=== PATIENT | female | born 1990 | race Caucasian/White ===

== ENCOUNTER 2018-02-10 15:12 | Emergency (ER) | payer OTHER ==
[~2018-02-10] VITALS: Ht 170.2 cm; Wt 60.3 kg
[2018-02-10 15:15] VITALS: BP 117/72
[2018-02-10 16:21] VITALS: BP 121/78
== END 2018-02-10 16:22 | disposition home or self-care (01) ==
LOC: MED 15:12
DX: N39.0 Urinary tract infection, site not specified (principal)
CPT/HCPCS: 36415; 81002; 81025; 84703; 99283

== ENCOUNTER 2018-09-01 13:45 | Emergency (ER) | payer OTHER ==
[~2018-09-01] VITALS: Ht 170.2 cm; Wt 61.9 kg
[2018-09-01 14:25] VITALS: BP 113/71
[2018-09-01 16:15] VITALS: BP 113/71
== END 2018-09-01 16:15 | disposition home or self-care (01) ==
LOC: MED 13:45
DX: N39.0 Urinary tract infection, site not specified (principal)
CPT/HCPCS: 81002; 81025; 99283

== ENCOUNTER 2020-08-20 13:10 | Emergency (ER) | payer OTHER ==
[~2020-08-20] VITALS: Ht 170.2 cm; Wt 58.1 kg
[2020-08-20 13:45] VITALS: BP 121/68
--- NOTE | 2020-08-20 14:16 | NUR ---
30 Y/O FEMALE COMES FROM HOME PRESENTS TO ED C/O SORE THROAT FOR 9 DAYS. PT WAS SEEN AT [facility] AND DISCHARGED WITH ERYTHROMYCIN. PT STATES SHE DID NOT TAKE THE ABX DUE TO SHE IS APPROX 5 WKS , +2 EDEMA TO LEFT-SIDE OF THROAT,+1 EDEMA TO THE RIGHT-SIDE OF THROAT, BILATERAL ERYTHEMA. NO EXUDATE NOTED. DENIES FEVER, COUGH, SOB, BODY ACHES, N/V/D, OR SICK CONTACTS. PMH: DENIES RX: DENIES NKDA
[2020-08-20] MEDS ORDERED: ACETAMINOPHEN EXTRA STRENGTH 500 MG TAB PO ONE (15:20)
[2020-08-20] MEDS ORDERED: cefTRIAXone 1,000 MG in LIDOCAINE MPF 1% 2.1 ML IM ONE (15:20)
[2020-08-20] MEDS ORDERED: cefTRIAXone 1,000 MG VIAL ONE (15:27)
[2020-08-20] MEDS ORDERED: LIDOCAINE MPF 1% 5 ML ONE (15:27)
[2020-08-20 15:51] VITALS: BP 121/68
--- NOTE | 2020-08-20 15:52 | NUR ---
Patient discharged with v/s stable. Written and verbal after care instructions given and explained. Patient alert, oriented and verbalized understanding of instructions. Ambulatory with steady gait. All questions addressed prior to discharge. ID band removed. Patient advised to follow up with PMD. Rx of ACETAMINOPHEN, AUGMENTIN given. Patient educated on indication of medication including possible reaction and side effects. Opportunity to ask questions provided and answered.
== END 2020-08-20 15:52 | disposition home or self-care (01) ==
LOC: MED 13:10
DX: O26.891 Other specified pregnancy related conditions, first trimester (principal); J02.9 Acute pharyngitis, unspecified; Z3A.01 Less than 8 weeks gestation of pregnancy
CPT/HCPCS: 81025; 96372; 99283; J0696; J2001